=== PATIENT | female | born 1990 | race Caucasian/White ===

== ENCOUNTER 2020-12-29 12:45 | Outpatient (CLI) | payer OTHER ==
[2020-12-29 14:20] LABS: BHCG - Serum Negative (NEGATIVE); Pregs Control Background? CLEAR/WHITE (CLR/WHITE); Pregs Control Bar Appear? YES (CONTROL BAR)
[2020-12-30 19:00] LABS: SARS-CoV-2 PCR by NAA Not Detected (NotDetected)
== END 2020-12-29 12:46 | disposition home or self-care (01) ==
LOC: LABBT 12:45
PROVIDERS: ATTEND Specialist
DX: Z01.812 Encounter for preprocedural laboratory examination (principal); K80.20 Calculus of gallbladder without cholecystitis without obstruction; Z20.822 Contact with and (suspected) exposure to COVID-19
CPT/HCPCS: 84703; U0003; U0005

== ENCOUNTER 2021-01-01 10:20 | Day surgery (SDC) | payer OTHER ==
[2020-12-29 15:32] VITALS: BMI 36.6
[2021-01-01] MEDS ORDERED: Acetaminophen 500 MG TAB ONE (10:38)
[2021-01-01] MEDS ORDERED: Ketorolac Tromethamine 30 MG/ML VIAL ONE ×2 (10:38→14:20)
[2021-01-01] MEDS ORDERED: Scopolamine 1.5 mg/72 hour Patch ONE (13:45)
[2021-01-01] MEDS ORDERED: EPINEPHrine 1 MG/ML AMP ONE (14:01)
[2021-01-01] MEDS ORDERED: Bupivacaine 0.25% HCL 30 ML VIAL ONE (14:01)
[2021-01-01] MEDS ORDERED: Midazolam HCl 2 mg/2 ml Vial ONE (14:06)
[2021-01-01] MEDS ORDERED: Fentanyl 100 MCG/2 ML VIAL ONE ×3 (14:08→16:12)
[2021-01-01] MEDS ORDERED: Lidocaine 2% Jelly 5 ML TUBE ONE (14:08)
[2021-01-01] MEDS ORDERED: Glycopyrrolate 0.2 MG/ML 5 ML SYRINGE ONE (14:20)
[2021-01-01] MEDS ORDERED: Ondansetron PF 4 MG/2 ML Vial ONE (14:20)
[2021-01-01] MEDS ORDERED: Rocuronium Bromide 10 MG/ML (10ML VIAL) ONE (14:20)
[2021-01-01] MEDS ORDERED: PROPOFOL 200 MG/20 ML VIAL ONE (14:20)
[2021-01-01] MEDS ORDERED: Dexamethasone 20 MG/5 ML VIAL ONE (14:20)
[2021-01-01] MEDS ORDERED: Lidocaine 1% PF 5 ML VIAL ONE (14:20)
[2021-01-01] MEDS ORDERED: Meperidine HCl/PF 25 MG/ML VIAL ONE (15:46)
[2021-01-01] MEDS ORDERED: Promethazine HCl 25 MG/ML VIAL ONE (15:50)
[2021-01-01] MEDS ORDERED: HYDROcodone/Acetaminophen 5/325 mg Tablet ONE (17:57)
== END 2021-01-01 18:25 | disposition home or self-care (01) ==
LOC: SDC 10:20
PROVIDERS: ATTEND Specialist
PROC: 0FT44ZZ Resection of Gallbladder, Percutaneous Endoscopic Approach (ICD-10-PCS; principal; 2021-01-01)
DX: K80.10 Calculus of gallbladder with chronic cholecystitis without obstruction (principal); Z86.16 Personal history of COVID-19
CPT/HCPCS: 88304; J0171; J0690; J1100; J1885; J2175; J2250; J2405; J2550; J2704; J3010; S0020